=== PATIENT | female | born 1990 | race Caucasian/White ===

== ENCOUNTER 2020-01-03 11:03 | Emergency (ER) | payer MEDICAID ==
[2020-01-03] MEDS ORDERED: RABIES VACCINE 2.5 UNIT SYRINGE IM ONE (12:28)
[2020-01-03] MEDS ORDERED: RABIES IMMUNE GLOBULIN 300 UNITS/2 ML IM STA (12:28)
--- NOTE | 2020-01-03 12:37 | ED Physician Documentation ---
History of Present Illness - Stated complaint Stated Complaint: BAT EXPOSURE - Chief complaint Chief Complaint: General - History obtained from History obtained from: Patient - History of Present Illness Timing: Unknown Pain level max: 0 Pain level now: 0 - Additonal information Additional information: was asleep and thinks a bat was in her room a week ago. states saw a bat today. States she occasionally has tingling in her hands and light sensitivity. no hydrophobia. no muscle rigidity. nothing makes it better or worse. Had blood work with PCP last week. normal electrolytes. Review of Systems Constitutional: denies: Fever, Chills Cardiac: denies: Chest pain / pressure Respiratory: denies: Dyspnea, Cough GI: denies: Abdominal Pain, Nausea, Vomiting, Diarrhea : denies: Dysuria, Frequency, Hesitancy, Now EGA Musculoskeletal: denies: Neck pain, Back pain Neurologic: denies: Focal weakness, Seizure, Confused, Altered mental status, Headache PD PAST MEDICAL HISTORY - Past Medical History Past Medical History: Yes - Allergies Allergies/Adverse Reactions: Allergies Allergy/AdvReac Type Severity Reaction Status Date / Time No Known Drug Allergies Allergy Verified 01/03/20 12:30 - Living Situation Living Situation: reports: With family Living Arrangement: reports: At home - Social History Does the pt have substance abuse?: No - Family History Family history: reports: Non contributory PD ED PE NORMAL - Vitals Vital signs reviewed: Yes - General General: Alert and oriented X 3, No acute distress, Well developed/nourished - HEENT HEENT: Moist mucous membranes - Neck Neck: Supple, no meningeal sign - Cardiac Cardiac: RRR, Strong equal pulses - Respiratory Respiratory: No respiratory distress, Clear bilaterally - Abdomen Abdomen: Normal bowel sounds, Soft, Non tender, Non distended - Back Back: No CVA TTP, No spinal TTP - Derm Derm: Warm and dry, No rash - Extremities Extremities: Normal ROM s pain - Neuro Neuro: Alert and oriented X 3, 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 Given rabies immunoglobulin and rabies vaccination. We will have her follow-up with her doctor to schedule the remainder of the vaccination series. Patient counseled regarding signs and symptoms for which I believe and urgent re-evaluation would be necessary. Patient with good understanding of and agreement to plan and is comfortable going home at this time This document was made in part using voice recognition software. While efforts are made to proofread this document, sound alike and grammatical errors may occur. Departure - Departure Disposition: 01 Home, Self Care Clinical Impression: Exposure to bat without known bite Condition: Good Instructions: Rabies Follow-Up: Provider,Other [Primary Care Provider] - Comments: You will need 3 more doses of the rabies vaccine on days 3, 7 and 14. today is day 0. Your doctor can contact the [facility] at the hospital to arrange. This call the [facility] [phone] and ask for the [facility] clinic. If they are unable to arrange this, return to the ER. Discharge Date/Time: 01/03/20 13:11
[2020-01-03 13:11] VITALS: BP 134/78
== END 2020-01-03 13:11 | disposition home or self-care (01) ==
LOC: ED 11:03
DX: Z20.3 Contact with and (suspected) exposure to rabies (principal)
CPT/HCPCS: 90471; 96372; 99283; 99284

== ENCOUNTER 2020-01-06 08:21 | Emergency (ER) | payer MEDICAID ==
[2020-01-06] MEDS ORDERED: RABIES VACCINE 2.5 UNIT SYRINGE IM ONE (08:29)
[2020-01-06 08:35] VITALS: BP 147/92
--- NOTE | 2020-01-06 08:46 | ED Physician Documentation ---
History of Present Illness - Stated complaint Stated Complaint: BAT EXPOSURE/SHOT FOLLOW UP - Chief complaint Chief Complaint: General - History obtained from History obtained from: Patient - History of Present Illness Pain level max: 0 Pain level now: 0 - Additonal information Additional information: Patient with a recent bat exposure. Here for her next vaccination in the series. Asymptomatic Review of Systems Constitutional: denies: Fever : denies: Now EGA PD PAST MEDICAL HISTORY - Past Medical History Past Medical History: No Cardiovascular: None Respiratory: None Neuro: None Endocrine/Autoimmune: None GI: None MUFFLER INSTALLER: None : None HEENT: None Psych: None Musculoskeletal: None Derm: None - Past Surgical History Past Surgical History: No - Allergies Allergies/Adverse Reactions: Allergies Allergy/AdvReac Type Severity Reaction Status Date / Time No Known Drug Allergies Allergy Verified 01/03/20 12:30 - Social History Does the pt smoke?: No Smoking Status: Never smoker Does the pt drink ETOH?: No Does the pt have substance abuse?: No - Immunizations Immunizations are current?: Yes - POLST Patient has POLST: No PD ED PE NORMAL - Vitals Vital signs reviewed: Yes - General General: Alert and oriented X 3, No acute distress - HEENT HEENT: PERRL, Moist mucous membranes - Respiratory Respiratory: No respiratory distress - Derm Derm: Warm and dry - Neuro Neuro: Alert and oriented X 3 - Psych Psych: Normal mood, Normal affect Results - Vitals Vitals: Vital Signs - 24 hr 01/06/20 08:29 Temperature 37.3 C Heart Rate 82 Respiratory 16 Rate Blood Pressure 147/92 H O2 Saturation 100 Oxygen O2 Source Room air PD MEDICAL DECISION MAKING - ED course Complexity details: considered differential, d/w patient ED course: Rabies vaccination given. No complaints. Departure - Departure Disposition: 01 Home, Self Care Clinical Impression: Exposure to bat without known bite Condition: Good Follow-Up: EWA OBRIEN ARNP [Primary Care Provider] - Comments: Follow up as previously instructed for remainder of vaccinations. Discharge Date/Time: 01/06/20 08:50
== END 2020-01-06 08:50 | disposition home or self-care (01) ==
LOC: ED 08:21
DX: Z20.3 Contact with and (suspected) exposure to rabies (principal)
CPT/HCPCS: 90471; 99282; 99283

== ENCOUNTER 2020-01-10 07:44 | Emergency (ER) | payer MEDICAID ==
--- NOTE | 2020-01-10 08:30 | ED Physician Documentation ---
ED Addendum - Addendum Addendum: 01/10/20 08:41 Patient is here for her third in the series of rabies vaccines. No problems with the prior immunization and no redness or swelling at these arm site where she was vaccinated.
[2020-01-10] MEDS ORDERED: RABIES VACCINE 2.5 UNIT SYRINGE IM ONE (08:40)
[2020-01-10 09:47] VITALS: BP 164/79
== END 2020-01-10 09:25 | disposition home or self-care (01) ==
LOC: ED 07:44
DX: Z29.14 Encounter for prophylactic rabies immune globulin (principal); Z20.3 Contact with and (suspected) exposure to rabies
CPT/HCPCS: 90471

== ENCOUNTER 2020-01-17 09:46 | Emergency (ER) | payer MEDICAID ==
[2020-01-17 10:03] VITALS: BP 128/86
[2020-01-17] MEDS ORDERED: RABIES VACCINE 2.5 UNIT SYRINGE IM ONE (10:09)
--- NOTE | 2020-01-17 10:11 | ED Physician Documentation ---
History of Present Illness - Stated complaint Stated Complaint: BAT EXPOSURE - Chief complaint Chief Complaint: General - History obtained from History obtained from: Patient - History of Present Illness Timing: How many weeks ago (2) - Additonal information Additional information: 29-year-old female who found that a bat was living in her home on January 02 is u ncertain if she was ever been bitten or scratched and rabies vaccine has been initiated. She is here today for her final dose at 2 weeks. She has had day 0, day three, 1 week and this is week 2. She has no specific symptoms otherwise feels well. Review of Systems Constitutional: denies: Fever Respiratory: denies: Cough GI: denies: Vomiting, Diarrhea PD PAST MEDICAL HISTORY - Past Medical History Cardiovascular: None Respiratory: None Neuro: None Endocrine/Autoimmune: None GI: None MEDICAL LABORATORY SCIENTIST: None : None HEENT: None Psych: None Musculoskeletal: None Derm: None - Past Surgical History Past Surgical History: No - Present Medications Home Medications: Ambulatory Orders Medication Instructions Recorded Confirmed No Known Home Medications 01/10/20 01/10/20 - Allergies Allergies/Adverse Reactions: Allergies Allergy/AdvReac Type Severity Reaction Status Date / Time No Known Drug Allergies Allergy Verified 01/10/20 08:04 - Social History Does the pt smoke?: No Smoking Status: Never smoker Does the pt drink ETOH?: No Does the pt have substance abuse?: No - Immunizations Immunizations are current?: Yes - POLST Patient has POLST: No PD ED PE NORMAL - Vitals Vital signs reviewed: Yes (Hypertensive) - General General: Alert and oriented X 3, No acute distress, Well developed/nourished - HEENT HEENT: Atraumatic, PERRL - Respiratory Respiratory: No respiratory distress - Derm Derm: Normal color, Warm and dry, No rash - Extremities Extremities: No deformity, No edema - Neuro Neuro: Alert and oriented X 3, 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, No motor deficit, No sensory deficit, Normal speech Eye Opening: Spontaneous Motor: Obeys Commands Verbal: Oriented GCS Score: 15 - Psych Psych: Normal mood, Normal affect Results - Vitals Vitals: Vital Signs - 24 hr 01/17/20 01/17/20 09:54 10:02 Temperature 36.5 C 36.1 C L Heart Rate 86 90 Respiratory 16 14 Rate Blood Pressure 130/95 H 128/86 H O2 Saturation 97 94 Oxygen O2 Source Room air PD MEDICAL DECISION MAKING - ED course Complexity details: considered differential, d/w patient ED course: 29-year-old female with risk of rabies exposure, is here for her fourth and fin al dose of rabies vaccination. She has no specific symptoms she is vaccinated and released. Departure - Departure Disposition: 01 Home, Self Care Clinical Impression: Need for immunization against rabies Condition: Stable Instructions: Rabies Vaccine suspension for injection Follow-Up: EWA OBRIEN ARNP [Primary Care Provider] -
== END 2020-01-17 10:29 | disposition home or self-care (01) ==
LOC: ED 09:46
DX: Z20.3 Contact with and (suspected) exposure to rabies (principal)
CPT/HCPCS: 90471; 99283